=== PATIENT | male | born 1985 | race Caucasian/White ===

== ENCOUNTER 2020-09-13 06:49 | Emergency (ER) | payer OTHER ==
[2020-09-13] MEDS ORDERED: TORAdol 30 mg Injection IM ONE (07:10)
--- NOTE | 2020-09-13 07:15 | ERPHSYRPT ---
- History of Present Illness Time Seen by Provider: 09/13/20 07:05 Source: patient Exam Limitations: no limitations Physician History: 35 years old with periodontal disease/caries presented in the ER with increasing pain in whole upper jaw for 1 day with associated swelling of gingiva. Patient reports 5/10 intensity sharp pain, aggravated with movements of jaw, swallowing and associated increasing swelling in the upper face. Patient denies any fever or chills. Timing/Duration: gradual onset, persistent, yesterday Severity: moderate ENT Location: dental Prearrival Treatment: over the counter meds Associated Symptoms: tooth pain Allergies/Adverse Reactions: No Known Drug Allergies Allergy (Unverified 09/13/20 07:00) - Review of Systems Constitutional: No Symptoms Eyes: No Symptoms Ears, Nose, & Throat: Other (To thick) Respiratory: No Symptoms Cardiac: No Symptoms Abdominal/Gastrointestinal: No Symptoms Genitourinary Symptoms: No Symptoms Musculoskeletal: No Symptoms Skin: No Symptoms Neurological: No Symptoms Psychological: No Symptoms Endocrine: No Symptoms Hematologic/Lymphatic: No Symptoms - Nursing Vital Signs Nursing Vital Signs: Initial Vital Signs Temperature 98.6 F 09/13/20 06:59 Pulse Rate 116 H 09/13/20 06:59 Respiratory Rate 18 09/13/20 06:59 Blood Pressure 146/89 09/13/20 06:59 O2 Sat by Pulse Oximetry 97 09/13/20 06:59 Pain Scale Pain Intensity 5 - Physical Exam General Appearance: no apparent distress, alert Eye Exam: bilateral eye: normal inspection, PERRL, EOMI Ear Exam: bilateral ear: auricle normal, canal normal, TM normal Nasal Exam: normal inspection Throat Exam: normal (Multiple rotten teeth with periodontal disease and gingival hyperemia in both upper and lower jaw but more in the upper.) Neck Exam: normal inspection, non-tender, supple, full range of motion Cardiovascular/Respiratory Exam: normal breath sounds, regular rate/rhythm Neurologic Exam: alert, oriented x 3, cooperative Skin Exam: normal color SpO2 Interpretation: normal SpO2: 97 O2 Delivery: Room Air Ordered Tests: Medication Summary Discontinued Medications Generic Name Dose Route Start Last Admin Trade Name Freq PRN Reason Stop Dose Admin Ketorolac Tromethamine 30 mg 09/13/20 07:10 09/13/20 07:20 Toradol 30 Mg Injection IM 09/13/20 07:11 30 mg STAT ONE Administration Ketorolac Tromethamine Confirm 09/13/20 07:19 Toradol 30 Mg Injection Administered 09/13/20 07:20 Dose 30 mg .ROUTE .STK-MED ONE - Progress Progress: unchanged Progress Note: 09/13/20 07:14 he is given Toradol for symptomatic relief. Started on Augmentin. Recommended outpatient dentist follow-up patient needs multiple teeth eruption. 09/13/20 07:59 Patient did get some vasovagal effect with near syncope after Toradol shot. His blood pressure dropped and low 90s systolic but improved back up to 114 in a few minutes. Patient was sweaty, feeling warmth. Offered IV fluids and baseline work-up but patient refused. Patient states "I am scared of needles and cannot have an IV. He is observed for more than half an hour and remained stable and improved back to normal. Counseled pt/family regarding: diagnosis, need for follow-up - Departure Departure Disposition: Home Clinical Impression: Dental infection Condition: Stable Critical Care Time: No Referrals: [facility] [NON-STAFF PHY W/O PRIVILEGES] - Instructions: Tooth Abscess (DC), Tooth Decay, Adult (DC) Additional Instructions: Take Tylenol/ibuprofen as needed for pain. Continue with antibiotics. Follow- up with dentist for reevaluation. Return to ER for increasing pain swelling or if develop fever chills etc. Prescriptions: Ibuprofen 600 mg PO Q6HPRN PRN 10 Days #20 tablet PRN Reason: Pain Amoxicillin/Potassium Clav [Augmentin 875-125 Tablet] 875 mg PO BID 7 Days #14 tablet
[2020-09-13] MEDS ORDERED: TORAdol 30 mg Injection ONE (07:19)
[2020-09-13 08:01] VITALS: BP 129/76; PULSE 80; O2SAT 98
== END 2020-09-13 08:09 | disposition home or self-care (01) ==
LOC: ED 06:49
DX: K04.7 Periapical abscess without sinus (principal)
CPT/HCPCS: 96372; 99283; J1885